=== PATIENT | male | born 1985 | race Caucasian/White ===

== ENCOUNTER 2017-07-23 06:26 | Emergency (ER) | payer SELFPAY ==
[~2017-07-23] VITALS: Ht 172.7 cm; Wt 77.0 kg
[2017-07-23] MEDS ORDERED: MORPHINE SULFATE 4 MG/ML CPJ (NOT FOR IM USE) IV STA (06:46)
[2017-07-23] MEDS ORDERED: SODIUM CHLORIDE 0.9% 1,000 ML IV ONE (06:46)
[2017-07-23] MEDS ORDERED: ONDANSETRON HCL 4MG/2ML VIAL IV STA (06:46)
[2017-07-23 07:18] LABS: CHLORIDE 106 mEq/L (98-107)
[2017-07-23 07:22] LABS: BASOPHILS % 0.4 % (0.0-2.0); EOSINOPHILS % 1.9 % (0.0-5.0); HEMATOCRIT. 46.2 % (42.0-52.0); HEMOGLOBIN. 16.2 g/dL (14.0-18.0); LYMPHOCYTES % 23.3 % (20.0-50.0); MEAN CORPUSCULAR HEMOGLOBIN 30.7 pg (28.0-32.0); MEAN CORPUSCULAR VOLUME 87.8 fL (80.0-94.0); MEAN PLATELET VOLUME 8.2 fl (7.4-10.4); MONOCYTES % 6.3 % (2.0-8.0); NEUTROPHILS % 68.1 % (40.0-76.0); PLATELET 296 x1000/uL (130-400); RED BLOOD CELL COUNT 5.26 mill/uL (4.7-6.1); RED CELL DISTRIBUTION WIDTH 13.7 % (11.6-14.6)
[2017-07-23 07:28] LABS: CARBON DIOXIDE 26 mEq/L (21-32)
[2017-07-23] MEDS ORDERED: KETOROLAC 30MG/ML VIAL IV ONE (08:30)
[2017-07-23 09:08] VITALS: BP 115/81
== END 2017-07-23 09:09 | disposition home or self-care (01) ==
LOC: ER 06:26
DX: R07.89 Other chest pain (principal); E87.6 Hypokalemia; V43.52XA Car driver injured in collision with other type car in traffic accident, initial encounter; Y93.89 Activity, other specified; Y92.488 Other paved roadways as the place of occurrence of the external cause
CPT/HCPCS: 36415; 70450; 71260; 72125; 74177; 80053; 83690; 85025; 96361; 96374; 96375; 99285; J1885; J2270; J2405; J7030; Z7610

== ENCOUNTER 2017-07-29 19:49 | Emergency (ER) | payer SELFPAY ==
[~2017-07-29] VITALS: Ht 170.2 cm; Wt 79.0 kg
[2017-07-29] MEDS ORDERED: KETOROLAC 60MG/2ML VIAL IM ONE (22:45)
[2017-07-29] MEDS ORDERED: IPRATROPIUM/ALBUTEROL 0.5-3(2.5)MG/3ML NEB HHN ONE (22:45)
[2017-07-30 00:24] VITALS: BP 122/71
== END 2017-07-30 00:27 | disposition home or self-care (01) ==
LOC: ER 19:49
DX: J40 Bronchitis, not specified as acute or chronic (principal); S20.211D Contusion of right front wall of thorax, subsequent encounter; Z98.890 Other specified postprocedural states; V43.92XD Unspecified car occupant injured in collision with other type car in traffic accident, subsequent encounter
CPT/HCPCS: 71010; 93005; 94640; 96372; 99283; J1885; Z7610; J7620